=== PATIENT | female | born 1985 | race Caucasian/White ===

== ENCOUNTER 2019-02-09 12:00 | Inpatient (IN) | payer BC ==
[~2019-02-09] VITALS: Ht 175.3 cm; Wt 103.0 kg
[~2019-02-09 12:00] MED LIST: CYCL10TA9 PO; FERR325T18 PO; PANT40TA3 PO
--- NOTE | 2019-02-12 07:24 | NUR ---
MELIA TERAN presented to unit via ambulation, accompanied by , for scheduled repeat c/s. Pt.weighed, gowned, voided, and to bed. EFHM and TOCO applied, VS taken. Pt. oriented to bed controls, call light, TV, heat, and A/C controls.
[2019-02-12] MEDS ORDERED: CITRIC ACID/SOB CIT (BICITRA) 30 ML UDC ONE (07:53)
[2019-02-12] MEDS ORDERED: METOCLOPRAMIDE INJ 10 MG/2 ML (REGLAN) ONE (07:53)
[2019-02-12] MEDS ORDERED: FAMOTIDINE 20MG/2ML IV (PEPCID) ONE (07:53)
[2019-02-12] MEDS ORDERED: LACTATED RINGERS 1,000 ML IV PRN (07:59)
[2019-02-12] MEDS ORDERED: CITRIC ACID/SOB CIT (BICITRA) 30 ML UDC PO ONE (08:00)
[2019-02-12] MEDS ORDERED: METOCLOPRAMIDE INJ 10 MG/2 ML (REGLAN) IV ONE (08:00)
[2019-02-12] MEDS ORDERED: FAMOTIDINE 20MG/2ML IV (PEPCID) IV ONE (08:00)
[2019-02-12] MEDS ORDERED: LACTATED RINGERS 1,000 ML IV ONE (08:07)
[2019-02-12 08:21] LABS: BASOPHILS % (AUTO) 0 % (0-10); EOSINOPHILS # (AUTO) 0.1 10^3/uL (0.0-0.3); EOSINOPHILS % (AUTO) 1 % (0-10); HEMATOCRIT 33 % (35-52); HEMOGLOBIN 11.1 G/DL (11.5-16.0); LYMPHOCYTES % (AUTO) 29 % (12-44); MEAN CORPUSCULAR HEMOGLOBIN 29 PG (25-34); MEAN CORPUSCULAR HGB CONC 33 G/DL (32-36); MEAN CORPUSCULAR VOLUME 87 FL (80-99); MEAN PLATELET VOLUME 10.2 FL (7.4-10.4); MONOCYTES # (AUTO) 0.7 X 10^3 (0.0-1.0); MONOCYTES % (AUTO) 10 % (0-12); NEUTROPHILS # (AUTO) 4.3 X 10^3 (1.8-7.8); NEUTROPHILS % (AUTO) 60 % (42-75); PLATELET COUNT 182 10^3/uL (130-400); RED CELL DISTRIBUTION WIDTH 13.7 % (10.0-14.5); WHITE BLOOD COUNT 7.1 10^3/uL (4.3-11.0)
[2019-02-12] MEDS ORDERED: OXYTOCIN/NORMAL SALINE 1,000 ML IV ONE (09:38)
[2019-02-12] MEDS ORDERED: fentaNYL INJECTION 100 MCG/2 ML AMP ONE (09:40)
[2019-02-12] MEDS ORDERED: ROPIVACAINE 5MG/ML 30ML VIAL ONE (09:46)
--- NOTE | 2019-02-12 09:54 | History & Physical-OB/GYN ---
History of Present Illness History of Present Illness Reason for visit/HPI Ms. Velazquez was admitted for scheduled repeat , she is 39 weeks Date of Admission Feb 12, 2019 at 07:24 Date Seen by a Provider: Feb 12, 2019 Time Seen by a Provider: 09:45 I consulted on this patient on 02/12/19 09:49 Attending Physician Peter Farooq DO Admitting Physician Peter Farooq DO Consult Allergies and Home Medications Allergies Coded Allergies: No Known Drug Allergies (Unverified , 02/08/19) Home Medications Cyclobenzaprine HCl 10 Mg Tablet, 10 MG PO TID PRN for MUSCLE SPASMS, (Reported) Ferrous Sulfate 325 Mg Tablet, 325 MG PO DAILY, (Reported) Pantoprazole Sodium 40 Mg Tablet.dr, 40 MG PO DAILY, (Reported) Patient Home Medication List Home Medication List Reviewed: Yes Past Snmxxuh-Ayuspl-Syroes Hx Patient Social History Marrital Status: Alcohol Use: Denies Use Recreational Drug Use: No Physical Abuse Screen: No Sexual Abuse: No Recent Hopitalizations: No Immunizations Up To Date Pediatric: Yes Seasonal Allergies Seasonal Allergies: No Surgeries Yes (LEEP, vaginal reconstruction after vaginal delivery) Respiratory No Cardiovascular No Neurological No Reproductive System Expected Date of Delivery: Feb 19, 2019 Genitourinary No Gastrointestinal Yes Gastroesophageal Reflux Musculoskeletal No Endocrine History of Endocrine Disorders: No HEENT History of HEENT Disorders: No Cancer No Psychosocial History of Psychiatric Problem: No Integumentary History of Skin or Integumenta: No Blood Transfusions History of Blood Disorders: No Family Medical History Family Hx: Alcoholism G8 BROTHER Drug abuse G8 BROTHER Thyroid disease 19 FATHER 19 MOTHER Review of Systems Constitutional: no symptoms reported, see HPI Physical Exam Physical Exam Vital Signs Capillary Refill : Labs Laboratory Tests 02/12/19 08:05: White Blood Count 7.1, Red Blood Count 3.80L, Hemoglobin 11.1L, Hematocrit 33L, Mean Corpuscular Volume 87, Mean Corpuscular Hemoglobin 29, Mean Corpuscular Hemoglobin Concent 33, Red Cell Distribution Width 13.7, Platelet Count 182, Mean Platelet Volume 10.2, Neutrophils (%) (Auto) 60, Lymphocytes (%) (Auto) 29, Monocytes (%) (Auto) 10, Eosinophils (%) (Auto) 1, Basophils (%) (Auto) 0, Neutrophils # (Auto) 4.3, Lymphocytes # (Auto) 2.0, Monocytes # (Auto) 0.7, Eosinophils # (Auto) 0.1, Basophils # (Auto) 0.0 General Appearance: No Apparent Distress, WD/WN Respiratory: Chest Non Tender, Lungs Clear, Normal Breath Sounds, No Accessory Muscle Use Cardiovascular: Regular Rate, Rhythm, No Murmur Abdominal: normal bowel sounds, non tender Vagina: WNL Uterus: WNL, Enlarged () Pelvic Exam: normal external exam, normal adnexa Extremity: Normal Range of Motion, Non Tender Assessment/Plan Assessment and Plan Assessment: Intrauterine at 39 weeks 2. Previous Plan: Procedure and it associated risks were discussed. All questions were answered. We will proceed with an immediate . Admission Diagnosis Intrauterine at 39 weeks 2. Previous Admission Status: Inpatient Order (span 2 midnights) Reason for Inpatient Admission: Scheduled surgery, Repeat Clinical Quality Measures DVT/VTE Risk/Contraindication: Risk Factor Score Per Nursin RFS Level Per Nursing on Admit: 2=Moderate PETER FAROOQ DO Feb 12, 2019 09:54
[2019-02-12] MEDS ORDERED: GLYCOPYRROLATE 0.2 MG/ML (ROBINUL) 2 ML VIAL ONE (10:14)
[2019-02-12] MEDS ORDERED: ONDANSETRON 4 MG/2 ML (SDV) Z0FRAN ONE (10:16)
[2019-02-12] MEDS ORDERED: PHENYLEPHRINE 100 MCG/ML 10 ML (ANESTHESIA) SYR ONE (10:17)
[2019-02-12] MEDS ORDERED: ANCEF 2 GM/NS 50 ML IVPB IV ONE (10:30)
[2019-02-12 11:00] VITALS: BP 108/63
[2019-02-12 11:15] VITALS: BP 116/79
[2019-02-12 11:30] VITALS: BP 97/80
[2019-02-12 11:45] VITALS: BP 97/50
[2019-02-12] MEDS ORDERED: OXYTOCIN/NORMAL SALINE 500 ML IV ONE (12:03)
--- NOTE | 2019-02-12 13:01 | Operative Report ---
Operative Report Date of Procedure/Surgery Feb 12, 2019 Surgeon (s) LORELEI JJ DO Wheel Truer (s): Cydney Alexander MD Post-Operative Diagnosis Intrauterine at 39 weeks 2. Previous Procedure Performed Repeat Description of Procedure Anesthesia Type: Spinal Estimated blood loss (mL): 600 ml Specimen(s) collected/removed Placenta and previous skin scar Description of the Procedure Ms. Velazquez was taken to the suite where Spinal Anesthesia was administered without difficulty. She was placed in the supine position where a Faust Catheter was inserted then she was prepped and draped via the normal sterile fashion. An elliptical incision was made over her previous incision with the old scar being removed and sent to pathology. The incision was carried down to the underlying layer of the fascia. The fascia was nicked in the midline with and extended laterally. The fascia was grasped, elevated and the rectus muscle dissected off sharply. The rectus muscle was in the midline. The peritoneum was identified, entered sharply and extended superiorly and inferiorly with good visualization of the bladder. The vesicouterine per itoneum was identified entered sharply and dissected off the lower uterine segment. The lower uterine segment was entered sharply, extended laterally with the bandage scissors. The membranes were artificially rupture--clear amniotic fluid. With the assist of the vacuum extractor, the vertex was delivered. The mouth and nose were suctioned immediately. A viable male infant was delivered. The cord was doubly clamped and cut, with the infant handed off to the waiting Pediatric Caregiver where NRP protocol was followed. The placenta was manually extracted. The uterus was then exteriorized and cleared of all clots and debris. The uterus was closed with 0-Vicryl in a running locked fashion. A second suture of the same type was placed as an imbricating layer. The vesicouterine peritoneum was approximated with 3-0 Vicryl. The uterus was returned to the pelvic cavity. The parietal peritoneum was closed with 3-0 Vicryl. The fascia was approximated with 0-Vicryl. The subcutaneous tissues were approximated with 3-0 Plain Gut. The skin was closed with 4-0 Vicryl in a subcuticular manner with excellent restorationist of normal skin planes. Sponge, instrument, and needle counts were correct x 3. Mom was taken to the Recovery Room in good and stable condition. Findings of the Procedure A healthy viable male infant, 7 lb 11 oz, 8, 8. Allergies and Home Medications Allergies Coded Allergies: No Known Drug Allergies (Unverified , 02/08/19) Home Medications Cyclobenzaprine HCl 10 Mg Tablet, 10 MG PO TID PRN for MUSCLE SPASMS, (Reported) Ferrous Sulfate 325 Mg Tablet, 325 MG PO DAILY, (Reported) Pantoprazole Sodium 40 Mg Tablet.dr, 40 MG PO DAILY, (Reported) Patient Home Medication List Home Medication List Reviewed: Yes LORELEI JJ DO Feb 12, 2019 13:01
[2019-02-12] MEDS ORDERED: ONDANSETRON 4 MG/2 ML (SDV) Z0FRAN IVP PRN ×2 (13:15→14:15)
[2019-02-12] MEDS ORDERED: TETANUS,DIPTH,PERTUSS P/F (BOOSTRIX) 0.5 ML VIAL IM SCH (13:15)
[2019-02-12] MEDS ORDERED: MEASLES,MUMPS,RUBELLA 1 EA INJ SC SCH (13:15)
[2019-02-12] MEDS ORDERED: ceFAZolin 2 GM/50 ML NS 50 ML IV NR (13:15)
[2019-02-12] MEDS ORDERED: fentaNYL INJECTION 100 MCG/2 ML AMP IVP PRN (13:15)
[2019-02-12] MEDS ORDERED: CATHETER FLUSH 10 ML SYR IV SCH (14:00)
[2019-02-12] MEDS ORDERED: HYDROmorphone 2 MG/ML VIAL (DILAUDID) IV ONE (14:15)
[2019-02-12] MEDS ORDERED: LORazepam INJ 2 MG/ML (ATIVAN) VIAL IVP NR (15:00)
[2019-02-12] MEDS ORDERED: D5 LR IV SOLUTION 1,000 ML IV ONE (16:09)
[2019-02-12] MEDS: KETOROLAC 30 MG/ML VIAL IV SCH ×2 (16:16→20:27)
[2019-02-12 16:18] VITALS: BP 104/62
[2019-02-12 20:15] VITALS: BP 104/62
[2019-02-12] MEDS: ACETAMINOPHEN 500 MG TAB (TYLENOL) PO SCH (20:15)
[2019-02-12] MEDS: DOCUSATE SODIUM 100 MG (COLACE) CAP PO SCH (20:17)
[2019-02-13] MEDS: METOCLOPRAMIDE 10 MG (REGLAN) TAB PO SCH ×2 (00:25→05:27)
[2019-02-13 00:26] VITALS: BP 97/58
[2019-02-13 04:26] VITALS: BP 104/60
[2019-02-13] MEDS: KETOROLAC 30 MG/ML VIAL IV SCH (04:26)
[2019-02-13] MEDS: ACETAMINOPHEN 500 MG TAB (TYLENOL) PO SCH ×2 (04:26→11:08)
[2019-02-13] MEDS ORDERED: MILK OF MAGNESIA 400 MG/5 ML 30 ML UDC PO NR (05:00)
[2019-02-13] MEDS ORDERED: BISACODYL 10 MG SUPP (DULCOLAX) PR NR (05:00)
[2019-02-13 05:30] LABS: BASOPHILS % (AUTO) 0 % (0-10); EOSINOPHILS # (AUTO) 0.2 10^3/uL (0.0-0.3); EOSINOPHILS % (AUTO) 2 % (0-10); HEMATOCRIT 31 % (35-52); HEMOGLOBIN 10.2 G/DL (11.5-16.0); LYMPHOCYTES # (AUTO) 1.2 X 10^3 (1.0-4.0); LYMPHOCYTES % (AUTO) 14 % (12-44); MEAN CORPUSCULAR HEMOGLOBIN 29 PG (25-34); MEAN CORPUSCULAR HGB CONC 33 G/DL (32-36); MEAN CORPUSCULAR VOLUME 88 FL (80-99); MONOCYTES # (AUTO) 0.6 X 10^3 (0.0-1.0); MONOCYTES % (AUTO) 8 % (0-12); NEUTROPHILS # (AUTO) 6.1 X 10^3 (1.8-7.8); NEUTROPHILS % (AUTO) 76 % (42-75); PLATELET COUNT 150 10^3/uL (130-400); RED CELL DISTRIBUTION WIDTH 13.8 % (10.0-14.5); WHITE BLOOD COUNT 8.1 10^3/uL (4.3-11.0)
--- NOTE | 2019-02-13 06:16 | NUR ---
abd drsg left in place and iv patent as saline lock r/t physician preference.
--- NOTE | 2019-02-13 06:26 | NUR ---
at bedside for assessment and poc review, pt pressed call light to notify staff of bowel movement.
--- NOTE | 2019-02-13 06:38 | Discharge Summary ---
Diagnosis/Chief Complaint Date of Admission Feb 12, 2019 at 07:24 Date of Discharge February 13, 2019 Discharge Date: Feb 13, 2019 Discharge Time: 06:45 Admission Diagnosis Admission Diagnosis Intrauterine at 39 weeks 2. Previous Discharge Diagnosis Intrauterine at 39 weeks 2. Previous Reason Hospital Visit Ms. Velazquez was admitted for scheduled repeat , she is 39 weeks Discharge Summary Hospital Course Was the Problem List Reviewed?: Yes Hospital Course Ms. Velazquez was admitted for a scheduled Repeat . The surgery was performed without complications. On her day of surgery, she was given pain medications and other comfort measures--unremarkable day. Postoperative Day #1 found Ms. Velazquez moving her bowels, voiding freely, tolerating a Regular Diet, ambulating on her own, and controlling her pain with oral medications Her vital signs remained stable throughout her hospitalization. She will be discharged to home with instructions, prescriptions and a follow up appointment. Labs Laboratory Tests 02/12/19 08:05: Red Blood Count 3.80L, Hemoglobin 11.1L, Hematocrit 33L 02/13/19 05:15: Red Blood Count 3.48L, Hemoglobin 10.2L, Hematocrit 31L, Neutrophils (%) (Auto) 76H Procedures None. Discharge Physical Examination Allergies: Coded Allergies: No Known Drug Allergies (Unverified , 02/08/19) Vitals & I&Os Vital Signs Date Time Temp Pulse Resp B/P (MAP) Pulse Ox O2 Delivery O2 Flow Rate FiO2 02/13/19 04:26 99.4 95 16 104/60 (75) 97 Room Air General Appearance: Alert, Oriented X3, Cooperative HEENT: PERRLA, EOMI Respiratory: Clear to Auscultation, Normal Air Movement Cardiovascular: Regular Rate, No Murmurs Abdominal: Normal Bowel Sounds, Soft, Other (Mildly tender, incision is clean, dry and well approximated) Extremities: No Clubbing, No Cyanosis Skin: No Rashes Neuro: Normal Gait, Normal Speech, Cranial Nerves 3-12 NL Psych/Mental Status: Mental Status NL Discharge Home Medications Reviewed and agree with Discharge Medication list on patient's Discharge Instruction sheet Instructions to Patient/Family Please see electronic discharge instructions given to patient. Clinical Quality Measures DVT/VTE Risk/Contraindication: Risk Factor Score Per Nursin RFS Level Per Nursing on Admit: 2=Moderate LORELEI JJ DO Feb 13, 2019 06:38
[2019-02-13] MEDS ORDERED: DOCU100C37 PO (06:42)
[2019-02-13] MEDS ORDERED: OXC5T PO (06:42)
[2019-02-13] MEDS ORDERED: ACET-77 PO (06:42)
[2019-02-13] MEDS ORDERED: IBUP-1780 PO (06:42)
[2019-02-13 08:27] VITALS: BP 100/65
--- NOTE | 2019-02-13 08:27 | NUR ---
initial shift assessment completed, see interventions for further. abd incision BIANCA with Dermabond intact. POC reviewed, states understanding.
--- NOTE | 2019-02-13 08:36 | Anesthesia-Regional Post-Op ---
Regional Patient Condition Mental Status: Alert, Oriented x3 Circulation: Same as Pre-Op Headache: Absent Sensation: Full Recovery Motor Block: Absent Post Op Complications Complications None Follow Up Care/Instructions Patient Instructions None needed. Anesthesia/Patient Condition Patient is doing well, no complaints, stable vital signs, no apparent adverse anesthesia problems. No complications reported per nursing. CAMILLA MUNZO CRNA Feb 13, 2019 08:36
[2019-02-13] MEDS ORDERED: IBUPROFEN 800 MG (MOTRIN) TAB PO ONE (10:53)
--- NOTE | 2019-02-13 11:07 | NUR ---
dismissal instructions given, verbalizes understanding. reviewed Rx's dosage and administration schedule. reviewed follow up appointments. signature page signed, placed on chart.
[2019-02-13] MEDS: DOCUSATE SODIUM 100 MG (COLACE) CAP PO SCH (11:08)
--- NOTE | 2019-02-13 13:10 | NUR ---
pt ambulated to private vehicle with staff, infant and @ side. infant secured in rear facing car seat. pt stable with no sx's of distress noted.
== END 2019-02-13 13:10 | disposition home or self-care (01) | DRG 788 ==
LOC: LDRP 02-12 07:24
PROVIDERS: ADMIT Obstetrics & Gynecology; ATTEND Obstetrics & Gynecology
PROC: 10D00Z1 Extraction of Products of Conception, Low, Open Approach (ICD-10-PCS; principal; 2019-02-12 09:59)
DX: O34.211 Maternal care for low transverse scar from previous cesarean delivery (principal); O99.62 Diseases of the digestive system complicating childbirth; K21.9 Gastro-esophageal reflux disease without esophagitis; Z3A.39 39 weeks gestation of pregnancy; Z37.0 Single live birth
CPT/HCPCS: 36415; 85025; 86850; 86900; 86901; 87081; 94664